=== PATIENT | male | born 1980 | race Caucasian/White ===

== ENCOUNTER 2016-07-15 07:56 | Inpatient (IN) | payer OTHER ==
[2016-07-15] MEDS ORDERED: HYDROmorphone 1 MG/ML 1 ML SYRINGE IVP STA ×2 (08:28→09:10)
[2016-07-15] MEDS ORDERED: ONDANSETRON 4 MG/2 ML VIAL IVP STA (08:28)
[2016-07-15] MEDS ORDERED: SODIUM CHLORIDE 0.9% 1,000 ML IV STA (08:28)
[2016-07-15 08:37] LABS: Basophils # (A) 0.1 k/uL (0-0.2); Basophils % (A) 0 %; CH 29.9; Eosinophils # (A) 0.2 k/uL (0-0.7); Eosinophils % (A) 1 %; HCT 46.7 % (39.0-53.0); HDW 2.89; HGB 16.2 gm/dL (13.0-17.5); Luc # (Auto) 0.15; Luc % (Auto) 1; Lymphocytes # (A) 1.8 k/uL (1.0-4.8); Lymphocytes % (A) 9 %; MCH 29.7 pg (25.0-35.0); MCHC 34.6 g/dL (31.0-37.0); MCV 85.8 fL (80.0-100.0); Mean Platelet Volume 7.7; Monocytes # (A) 0.7 k/uL (0-1.0); Monocytes % (A) 4 %; Neutrophils % (A) 85 %; RBC 5.45 m/uL (4.30-5.90); RDW 12.9 % (11.5-15.5); WBC (Perox) 20.11
[2016-07-15 08:47] LABS: ALT 69 U/L (21-72); AST 34 U/L (17-59); Alkaline Phosphatase 135 U/L (38-126); Amylase 47 U/L (30-110); Anion Gap 10 mmol/L; Blood Urea Nitrogen 19 mg/dL (9-20); Calcium 9.9 mg/dL (8.4-10.2); Carbon Dioxide 25 mmol/L (22-30); Chloride 108 mmol/L (98-107); Glucose 194 mg/dL (74-99); Non-African American GFR(MDRD) >60 (>60 ml/min/1.73 sqM); Potassium 4.3 mmol/L (3.5-5.1); Sodium 143 mmol/L (137-145); Total Bilirubin 0.9 mg/dL (0.2-1.3); Total Protein 7.7 g/dL (6.3-8.2)
--- NOTE | 2016-07-15 08:47 | ED ---
General Adult HPI - General Chief complaint: Abdominal Pain Stated complaint: ABDOMINAL PAIN Time Seen by Provider: 07/15/16 08:12 Source: patient, RN notes reviewed Mode of arrival: ambulatory Limitations: no limitations - History of Present Illness Initial comments: Patient is a 36-year-old male who presents emergency room today with a chief complaint of epigastric and left upper quadrant pain that started this morning. Patient states never had pain similar to this in the past. Patient does admit to symptoms of nausea vomiting diarrhea. Denies any other sick contacts at home. Denies any other complaints or associated symptoms at this time. Patient denies any recent fever, chills, shortness of breath, chest pain, back pain, numbness or tingling, dysuria or hematuria, constipation, headaches or visual changes, or any other complaints. - Related Data Home Medications Medication Instructions Recorded Confirmed Baclofen [Lioresal] 20 mg PO TID 12/07/14 12/07/14 Doxycycline [Vibramycin] 50 mg PO Q12HR 12/07/14 12/07/14 HYDROcodone/APAP 10-325MG [[place] 1 each PO Q6H PRN 12/07/14 12/07/14 10] PARoxetine [Paxil] 10 mg PO DAILY 12/07/14 12/07/14 metFORMIN HCL 1,000 mg PO BID 12/07/14 12/07/14 Previous Rx's Medication Instructions Recorded Omeprazole [PriLOSEC] 20 mg PO AC-BRKFST #30 cap 12/07/14 Ondansetron HCl [Zofran] 4 mg PO Q4-6H PRN #15 tab 12/07/14 Allergies Allergy/AdvReac Type Severity Reaction Status Date / Time No Known Allergies Allergy Verified 07/15/16 11:52 Review of Systems ROS Statement: Those systems with pertinent positive or pertinent negative responses have been documented in the HPI. ROS Other: All systems not noted in ROS Statement are negative. Past Medical History Past Medical History: Diabetes Mellitus Additional Past Medical History / Comment(s): Traumatic brain injury, post traumatic stress disorder History of Any Multi-Drug Resistant Organisms: None Reported Past Surgical History: Tonsillectomy Past Psychological History: PTSD Smoking Status: Current every day smoker Past Alcohol Use History: None Reported Past Drug Use History: None Reported General Exam - General Exam Comments Initial Comments: General: The patient is awake and alert, in no distress, and does not appear acutely ill. Eye: Pupils are equal, round and reactive to light, extra-ocular movements are intact. No nystagmus. There is normal conjunctiva bilaterally. No signs of icterus. Ears, nose, mouth and throat: There are moist mucous membranes and no oral lesions. Neck: The neck is supple, there is no tenderness or JVD. Cardiovascular: There is a regular rate and rhythm. No murmur, rub or gallop is appreciated. Respiratory: Lungs are clear to auscultation, respirations are non-labored, breath sounds are equal. No wheezes, stridor, rales, or rhonchi. Gastrointestinal: Normal exam. Normal bowel sounds. Abdomen soft on palpation. Patient does have tenderness in the epigastric and left upper quadrants. No rebound tenderness. No guarding. No CVA tenderness. Musculoskeletal: Normal ROM, no tenderness. Strength 5/5. Sensation intact. Pulses equal bilaterally 2+. Neurological: A&O x 3. CN II-XII intact, There are no obvious motor or sensory deficits. Coordination appears grossly intact. Speech is normal. Skin: Skin is warm and dry and no rashes or lesions are noted. Psychiatric: Cooperative, appropriate mood & affect, normal judgment. Limitations: no limitations Course Vital Signs 07/15/16 08:01 Temperature 97.8 F Pulse Rate 85 Respiratory 20 Rate Blood Pressure 180/99 O2 Sat by Pulse 99 Oximetry Medical Decision Making - Medical Decision Making Patient is a 20,[address] was obtained which does show possible pyelonephritis. His urinalysis shows no sign of infection but does have some red cells. Small calcification areas seen in the lower pelvis on CT. Patient started on Rocephin here in the emergency room cover for infection. Continues to have pain with symptoms of nausea vomiting here the emergency room will be admitted to the hospital for further evaluation and pain control. - Lab Data Result diagrams: 07/15/16 08:17 07/15/16 08:17 Lab Results 07/15/16 07/15/16 07/15/16 Range/Units 08:14 08:17 08:17 WBC 20.0 H (3.8-10.6) k/uL RBC 5.45 (4.30-5.90) m/uL Hgb 16.2 (13.0-17.5) gm/dL Hct 46.7 (39.0-53.0) % MCV 85.8 (80.0-100.0) fL MCH 29.7 (25.0-35.0) pg MCHC 34.6 (31.0-37.0) g/dL RDW 12.9 (11.5-15.5) % Plt Count 366 (150-450) k/uL Neutrophils % 85 % Lymphocytes % 9 % Monocytes % 4 % Eosinophils % 1 % Basophils % 0 % Neutrophils # 17.0 H (1.3-7.7) k/uL Lymphocytes # 1.8 (1.0-4.8) k/uL Monocytes # 0.7 (0-1.0) k/uL Eosinophils # 0.2 (0-0.7) k/uL Basophils # 0.1 (0-0.2) k/uL Sodium 143 (137-145) mmol/L Potassium 4.3 (3.5-5.1) mmol/L Chloride 108 H (98-107) mmol/L Carbon Dioxide 25 (22-30) mmol/L Anion Gap 10 mmol/L BUN 19 (9-20) mg/dL Creatinine 0.83 (0.66-1.25) mg/dL Est GFR (MDRD) Af Amer >60 (>60 ml/min/1.73 sqM) Est GFR (MDRD) Non-Af >60 (>60 ml/min/1.73 sqM) Glucose 194 H (74-99) mg/dL Calcium 9.9 (8.4-10.2) mg/dL Total Bilirubin 0.9 (0.2-1.3) mg/dL AST 34 (17-59) U/L ALT 69 (21-72) U/L Alkaline Phosphatase 135 H (38-126) U/L Total Protein 7.7 (6.3-8.2) g/dL Albumin 4.8 (3.5-5.0) g/dL Amylase 47 (30-110) U/L Lipase 91 (23-300) U/L Urine Color Urine Appearance (Clear) Urine pH (5.0-8.0) Ur Specific [place] (1.001-1.035) Urine Protein (Negative) Urine Glucose (UA) (Negative) Urine Ketones (Negative) Urine Blood (Negative) Urine Nitrite (Negative) Urine Bilirubin (Negative) Urine Urobilinogen (<2.0) mg/dL Ur Leukocyte Esterase (Negative) Urine RBC (0-5) /hpf Urine WBC (0-5) /hpf Ur Squamous Epith Cells (0-4) /hpf Urine Mucus (None) /hpf Acetone, Qual Negative (Negative) 07/15/16 Range/Units 10:54 WBC (3.8-10.6) k/uL RBC (4.30-5.90) m/uL Hgb (13.0-17.5) gm/dL Hct (39.0-53.0) % MCV (80.0-100.0) fL MCH (25.0-35.0) pg MCHC (31.0-37.0) g/dL RDW (11.5-15.5) % Plt Count (150-450) k/uL Neutrophils % % Lymphocytes % % Monocytes % % Eosinophils % % Basophils % % Neutrophils # (1.3-7.7) k/uL Lymphocytes # (1.0-4.8) k/uL Monocytes # (0-1.0) k/uL Eosinophils # (0-0.7) k/uL Basophils # (0-0.2) k/uL Sodium (137-145) mmol/L Potassium (3.5-5.1) mmol/L Chloride (98-107) mmol/L Carbon Dioxide (22-30) mmol/L Anion Gap mmol/L BUN (9-20) mg/dL Creatinine (0.66-1.25) mg/dL Est GFR (MDRD) Af Amer (>60 ml/min/1.73 sqM) Est GFR (MDRD) Non-Af (>60 ml/min/1.73 sqM) Glucose (74-99) mg/dL Calcium (8.4-10.2) mg/dL Total Bilirubin (0.2-1.3) mg/dL AST (17-59) U/L ALT (21-72) U/L Alkaline Phosphatase (38-126) U/L Total Protein (6.3-8.2) g/dL Albumin (3.5-5.0) g/dL Amylase (30-110) U/L Lipase (23-300) U/L Urine Color Yellow Urine Appearance Clear (Clear) Urine pH 5.0 (5.0-8.0) Ur Specific [place] 1.021 (1.001-1.035) Urine Protein Trace H (Negative) Urine Glucose (UA) Negative (Negative) Urine Ketones 1+ H (Negative) Urine Blood Moderate H (Negative) Urine Nitrite Negative (Negative) Urine Bilirubin Negative (Negative) Urine Urobilinogen <2.0 (<2.0) mg/dL Ur Leukocyte Esterase Negative (Negative) Urine RBC 23 H (0-5) /hpf Urine WBC <1 (0-5) /hpf Ur Squamous Epith Cells <1 (0-4) /hpf Urine Mucus Occasional H (None) /hpf Acetone, Qual (Negative) Disposition Clinical Impression: Intractable nausea and vomiting, Intractable pain Disposition: ADMITTED IP TO THIS [facility] Condition: Stable Referrals: Bipin Babb DO [Primary Care Provider] - 1-2 days Time of Disposition: 11:27
--- NOTE | 2016-07-15 09:17 | XR ---
Abdomen HISTORY: Pain, nausea and vomiting Frontal view of the abdomen on 2 images There is no bowel obstruction or pneumoperitoneum. No pathologic calcification. Lung bases are clear. IMPRESSION: Nonobstructive bowel gas pattern
--- NOTE | 2016-07-15 10:16 | CT ---
EXAMINATION TYPE: CT abdomen pelvis wo con DATE OF EXAM: 07/15/2016 COMPARISON: Abdomen same date HISTORY: Abdominal pain CT DLP: 1963 mGycm Automated exposure control for dose reduction was used. TECHNIQUE: Helical acquisition of images from the lung bases through the pelvis. FINDINGS: LUNG BASES: Minimal dependent atelectatic changes are present. No pleural or pericardial effusion. ABDOMEN: Lack of intravenous contrast could compromise sensitivity of the exam. There is no pneumoper itoneum, retroperitoneal adenopathy, or ascites. AORTA: No significant abnormality is appreciated. LIVER/GB: Liver shows low attenuation likely due to fatty infiltration. Focal fatty sparing adjacent to the gallbladder, gallbladder is unremarkable. Liver is enlarged. PANCREAS: No significant abnormality is seen. SPLEEN: No significant abnormality is seen. ADRENALS: No significant abnormality is seen. KIDNEYS: Left kidney shows some perinephric stranding, mild prominence of the collecting system is no myrtle. No ureteral calculus, no renal calculus bilaterally. REPRODUCTIVE ORGANS: No significant abnormality is seen. URINARY BLADDER: No significant abnormality is seen. BOWEL: No significant abnormality is seen. The appendix is normal. PELVIC ADENOPATHY: None visualized. RETROPERITONEAL ADENOPATHY: No Retroperitoneal Adenopathy visible. OSSEOUS STRUCTURES: Degenerative disc changes are present especially at the lumbosacral junction. IMPRESSION: FINDINGS WITHIN THE LEFT KIDNEY COULD REPRESENT PYELONEPHRITIS OR POSSIBLY RECENTLY PASSED URETERAL C ALCULUS. CORRELATE AND FOLLOW-UP INDICATED. FATTY INFILTRATION OF THE LIVER. NONCONTRAST EXAM.
[2016-07-15 11:08] LABS: Appearance,Urine Clear (Clear); Bilirubin,Urine Negative (Negative); Glucose,Urine (UA) Negative (Negative); Ketones,Urine 1+ (Negative); Leukocyte Esterase,Urine Negative (Negative); Mucus,Urine Occasional /hpf; Nitrite,Urine Negative (Negative); Particle Count 3359; Protein,Urine Trace (Negative); RBC,Urine 23 /hpf (0-5); Specific Gravity,Urine 1.021 (1.001-1.035); Squamous Epithelial Cell,Urine <1 /hpf (0-4); UA Billing (MACRO vs. MICRO) MICRO; Urobilinogen,Urine <2.0 mg/dL (<2.0); WBC,Urine <1 /hpf (0-5)
[2016-07-15] MEDS ORDERED: KETOROLAC 30 MG/ML 1 ML VIAL IVP STA (11:10)
[2016-07-15] MEDS ORDERED: cefTRIAXone 2,000 MG in SODIUM CHLORIDE 0.9% 100 ML IVPB STA (11:19)
[2016-07-15] MEDS ORDERED: SODIUM CHLORIDE 0.9% 1,000 ML IV ONE (11:56)
[2016-07-15] MEDS ORDERED: KETOROLAC 30 MG/ML 1 ML VIAL IVP PRN (11:56)
[2016-07-15] MEDS ORDERED: ACETAMINOPHEN TAB 325 MG TAB PO PRN (11:56)
[2016-07-15] MEDS ORDERED: ONDANSETRON 4 MG/2 ML VIAL IVP PRN (11:56)
[2016-07-15] MEDS ORDERED: HYDROmorphone 1 MG/ML 1 ML SYRINGE IV PRN (11:56)
[2016-07-15] MEDS ORDERED: NALOXONE 0.4 MG/ML 1 ML VIAL IV PRN (11:56)
[2016-07-15 12:32] VITALS: BP 137/77; PULSE 72; RESP 16; TEMP 97.4
--- NOTE | 2016-07-15 19:43 | HP ---
DATE OF ADMISSION: 07/15/2016 This dictation is both H&P and discharge summary. HISTORY AND PHYSICAL EXAMINATION/DISCHARGE SUMMARY: Patient is a 36-year-old gentleman came in with complaints of severe crampy and sharp abdominal pain in the left lower abdominal quadrant, radiating to the back and into the groin area. Patient denied any fever, chills. Patient's pain was 10/10, which completely resolved at this point of time. Patient says Ketorolac helped him. Patient also had leukocytosis. Patient denied any fever, chills. Patient symptoms started last night and a CT of the abdomen and pelvis was done which did show some inflammatory changes consistent with passed stone. Although patient does not have any clinical signs or symptoms of infection or UTI. Patient denied any dysuria. The patient's urine showed trace protein, 1+ ketones. Moderate blood and no WBC, 23 RBCs and occasional mucus consistent with passed stone and patient does have leukocytosis, which is reactive secondary to severe pain from cholelithiasis. Patient was also having nausea, vomiting. REVIEW OF SYSTEMS: CONSTITUTIONAL: No fever, no malaise, no fatigue. HEENT: No recent visual problems or hearing problems. Denied any sore throat. CARDIOVASCULAR: No chest pain, orthopnea, PND, no palpitations, no syncope. PULMONARY: No shortness of breath, no cough, no hemoptysis. GASTROINTESTINAL: as described in HPI. NEUROLOGICAL: No headaches, no weakness, no numbness. HEMATOLOGICAL: Denies any bleeding or petechiae. GENITOURINARY: Denies any burning micturition, frequency, or urgency. MUSCULOSKELETAL/RHEUMATOLOGICAL: Denies any joint pain, swelling, or any muscle pain. ENDOCRINE: Denies any polyuria or polydipsia. The rest of the 14 point review of systems is negative. Home medications include: 1. Baclofen. 2. Doxycycline. 3. Hydrocodone. 4. Acetaminophen. 5. Paroxetine. 6. Metformin. PAST MEDICAL HISTORY: Significant for diabetes mellitus. Obesity. PTSD. Patient smokes on a regular basis. Denied any alcohol abuse or any drug abuse. FAMILY HISTORY: Unavailable at this point of time. PHYSICAL EXAMINATION: VITAL SIGNS: Temperature 97.4, pulse 72, respiratory rate of 16, blood pressure is 107/77. Saturating at 98% on room air. GENERAL: The patient is alert and oriented x3, not in any acute distress. Well developed, well nourished. HEENT: Pupils are round and equally reacting to light. EOMI. No scleral icterus. No conjunctival pallor. Normocephalic, atraumatic. No pharyngeal erythema. No thyromegaly. CARDIOVASCULAR: S1 and S2 present. No murmurs, rubs, or gallops. PULMONARY: Chest is clear to auscultation, no wheezing or crackles. ABDOMEN: Soft, nontender, nondistended, normoactive bowel sounds. No palpable organomegaly. MUSCULOSKELETAL: No joint swelling or deformity. EXTREMITIES: No cyanosis, clubbing, or pedal edema. NEUROLOGICAL: Gross neurological examination did not reveal any focal deficits. SKIN: No rashes. LABORATORY DATA: CBC and are abnormal for elevated WBC count of 20,000. UA as mentioned above. ASSESSMENT AND PLAN: 1. Cholelithiasis with passed stone. I do not feel patient has any urinary tract infection at this point of time or pyelonephritis at this point of time. Patient will not require antibiotics and patient already has ibuprofen at home which he will continue and patient will follow with Dr. Babb as an outpatient. Patient is following up with urology in [facility] in [place] for vasectomy and I asked the patient to follow-up with the same urologist for his kidney stones. 2. Diabetes mellitus, patient can continue his home medications. 3. Leukocytosis without any infection reactive in nature. Patient's pain completely resolved. Patient is being discharged today. Patient will follow with Dr. Bipin Babb in 3 to 7 days, his urologist as scheduled. Activity as tolerated. Diabetic 1800 calorie ADA diet.
== END 2016-07-15 15:02 | disposition home or self-care (01) | DRG 694 ==
LOC: EC 07:56 → 4MS4W 11:56
PROVIDERS: ADMIT Hospitalist; ATTEND Hospitalist
DX: N20.0 Calculus of kidney (principal); Z68.41 Body mass index [BMI] 40.0-44.9, adult; E11.9 Type 2 diabetes mellitus without complications; D72.829 Elevated white blood cell count, unspecified; F17.200 Nicotine dependence, unspecified, uncomplicated; F43.10 Post-traumatic stress disorder, unspecified; R11.2 Nausea with vomiting, unspecified; E66.9 Obesity, unspecified; Z79.899 Other long term (current) drug therapy; Z79.84 Long term (current) use of oral hypoglycemic drugs; Z87.820 Personal history of traumatic brain injury; Z79.2 Long term (current) use of antibiotics; Z79.891 Long term (current) use of opiate analgesic
CPT/HCPCS: 36415; 74000; 74176; 80053; 81001; 82009; 82150; 83690; 85025; 96361; 96365; 96374; 96375; 96376; 99284; 99285

== ENCOUNTER 2016-07-15 17:18 | Emergency (ER) | payer OTHER ==
[2016-07-15] MEDS ORDERED: SODIUM CHLORIDE 0.9% 1,000 ML IV STA (18:04)
[2016-07-15] MEDS ORDERED: KETOROLAC 30 MG/ML 1 ML VIAL IVP STA (18:04)
--- NOTE | 2016-07-15 18:12 | ED ---
General Adult HPI - General Chief complaint: Abdominal Pain Stated complaint: back and abdominal pain Time Seen by Provider: 07/15/16 17:57 Source: patient, RN notes reviewed Mode of arrival: ambulatory Limitations: no limitations - History of Present Illness Initial comments: Patient 36-year-old male who presents emergency room today with a chief complaint of left-sided flank pain. He does admit that this started early this morning approximately 3 and was seen here in the emergency room earlier today and admitted to the hospital. He states his pain had improved. The floor. He stated that he had passed a kidney stone and was cleared to be discharged home. States that when he got home the pain increased and returned. He states he is expressing his left flank once again. Patient does admit to symptoms of nausea and vomiting. Admits pain sharp in nature located to the left flank radiating around to the front. Denies any other complaints or symptoms. Patient denies any recent fever, chills, shortness of breath, chest pain, numbness or tingling, dysuria or hematuria, constipation or diarrhea, headaches or visual changes, or any other complaints. - Related Data Home Medications Medication Instructions Recorded Confirmed Dextroamphetamine/Amphetamine 30 mg PO BID 07/15/16 07/15/16 [Adderall] Glipizide Unknown Strength 1 tab PO BID 07/15/16 07/15/16 Ibuprofen [Motrin] 800 mg PO BID 07/15/16 07/15/16 Previous Rx's Medication Instructions Recorded Ketorolac [Toradol] 10 mg PO Q6HR #12 tab 07/15/16 Allergies Allergy/AdvReac Type Severity Reaction Status Date / Time No Known Allergies Allergy Verified 07/15/16 11:52 Review of Systems ROS Statement: Those systems with pertinent positive or pertinent negative responses have been documented in the HPI. ROS Other: All systems not noted in ROS Statement are negative. Past Medical History Past Medical History: Diabetes Mellitus Additional Past Medical History / Comment(s): Traumatic brain injury, post traumatic stress disorder History of Any Multi-Drug Resistant Organisms: None Reported Past Surgical History: Tonsillectomy Past Psychological History: PTSD Smoking Status: Current every day smoker Past Alcohol Use History: None Reported Past Drug Use History: None Reported General Exam - General Exam Comments Initial Comments: General: The patient is awake and alert, in mild distress. Eye: Pupils are equal, round and reactive to light, extra-ocular movements are intact. No nystagmus. There is normal conjunctiva bilaterally. No signs of icterus. Ears, nose, mouth and throat: There are moist mucous membranes and no oral lesions. Neck: The neck is supple, there is no tenderness or JVD. Cardiovascular: There is a regular rate and rhythm. No murmur, rub or gallop is appreciated. Respiratory: Lungs are clear to auscultation, respirations are non-labored, breath sounds are equal. No wheezes, stridor, rales, or rhonchi. Gastrointestinal: Normal appearance them. Bowel sounds. Abdomen soft nontender. Patient does have tenderness to the left flank. No rebound tenderness. No Guarding. Musculoskeletal: Normal ROM, no tenderness. Strength 5/5. Sensation intact. Pulses equal bilaterally 2+. Neurological: A&O x 3. CN II-XII intact, There are no obvious motor or sensory deficits. Coordination appears grossly intact. Speech is normal. Skin: Skin is warm and dry and no rashes or lesions are noted. Psychiatric: Cooperative, appropriate mood & affect, normal judgment. Limitations: no limitations Course Vital Signs 07/15/16 17:44 Temperature 97.8 F Pulse Rate 85 Respiratory 20 Rate Blood Pressure 180/99 O2 Sat by Pulse 99 Oximetry Medical Decision Making - Medical Decision Making Case discussed in detail with attending physician Dr. Sanchez. Patient's labs been reviewed shows a 17,000 white count. Patient's urinalysis shows 27 red cells. Patient's previous CT of the abdomen and pelvis reviewed. Previous labs reviewed. At this time patient resting comfortable after Toradol given here in the emergency room. Patient will be discharged home with a short prescription for USE over the next 2 days. He does have Gate at home. He is advised follow-up urologist over the next 2 days. Advised return if any symptoms increase or worsen or for any other concerns. - Lab Data Result diagrams: 07/15/16 18:12 07/15/16 18:12 Lab Results 07/15/16 07/15/16 07/15/16 Range/Units 18:12 18:12 18:12 WBC 17.8 H (3.8-10.6) k/uL RBC 5.21 (4.30-5.90) m/uL Hgb 15.2 (13.0-17.5) gm/dL Hct 45.5 (39.0-53.0) % MCV 87.4 (80.0-100.0) fL MCH 29.3 (25.0-35.0) pg MCHC 33.5 (31.0-37.0) g/dL RDW 13.2 (11.5-15.5) % Plt Count 302 (150-450) k/uL Neutrophils % 82 % Lymphocytes % 9 % Monocytes % 7 % Eosinophils % 1 % Basophils % 0 % Neutrophils # 14.6 H (1.3-7.7) k/uL Lymphocytes # 1.6 (1.0-4.8) k/uL Monocytes # 1.2 H (0-1.0) k/uL Eosinophils # 0.2 (0-0.7) k/uL Basophils # 0.0 (0-0.2) k/uL Sodium 144 (137-145) mmol/L Potassium 4.0 (3.5-5.1) mmol/L Chloride 107 (98-107) mmol/L Carbon Dioxide 25 (22-30) mmol/L Anion Gap 12 mmol/L BUN 19 (9-20) mg/dL Creatinine 1.10 (0.66-1.25) mg/dL Est GFR (MDRD) Af Amer >60 (>60 ml/min/1.73 sqM) Est GFR (MDRD) Non-Af >60 (>60 ml/min/1.73 sqM) Glucose 173 H (74-99) mg/dL Calcium 9.6 (8.4-10.2) mg/dL Total Bilirubin 0.5 (0.2-1.3) mg/dL AST 31 (17-59) U/L ALT 60 (21-72) U/L Alkaline Phosphatase 107 (38-126) U/L Total Protein 7.0 (6.3-8.2) g/dL Albumin 4.4 (3.5-5.0) g/dL Lipase 129 (23-300) U/L Urine Color Yellow Urine Appearance Cloudy (Clear) Urine pH 5.5 (5.0-8.0) Ur Specific [place] 1.024 (1.001-1.035) Urine Protein Trace H (Negative) Urine Glucose (UA) Trace H (Negative) Urine Ketones Trace H (Negative) Urine Blood Moderate H (Negative) Urine Nitrite Negative (Negative) Urine Bilirubin Negative (Negative) Urine Urobilinogen <2.0 (<2.0) mg/dL Ur Leukocyte Esterase Negative (Negative) Urine RBC 27 H (0-5) /hpf Urine WBC 1 (0-5) /hpf Ur Squamous Epith Cells <1 (0-4) /hpf Amorphous Sediment Rare H (None) /hpf Urine Mucus Few H (None) /hpf Disposition Clinical Impression: Kidney stone on left side Disposition: HOME SELF-CARE Condition: Good Instructions: Kidney Stones (ED) Additional Instructions: Please use medication as discussed. Please follow-up with urologist/family doctor in the next 2 days of symptoms have not improved. Please return to emergency room if the symptoms increase or worsen or for any other concerns. Prescriptions: Ketorolac [Toradol] 10 mg PO Q6HR #12 tab Referrals: Bipin Babb DO [Primary Care Provider] - 1-2 days Cory Kaye MD [STAFF PHYSICIAN] - 1-2 days Time of Disposition: 18:56
[2016-07-15 18:25] LABS: Basophils % (A) 0 %; CH 29.5; CHCM 33.9; Eosinophils # (A) 0.2 k/uL (0-0.7); Eosinophils % (A) 1 %; HCT 45.5 % (39.0-53.0); HDW 2.71; HGB 15.2 gm/dL (13.0-17.5); Luc # (Auto) 0.25; Luc % (Auto) 1; Lymphocytes # (A) 1.6 k/uL (1.0-4.8); Lymphocytes % (A) 9 %; MCH 29.3 pg (25.0-35.0); MCHC 33.5 g/dL (31.0-37.0); MCV 87.4 fL (80.0-100.0); Mean Platelet Volume 6.9; Monocytes # (A) 1.2 k/uL (0-1.0); Monocytes % (A) 7 %; Neutrophils # (A) 14.6 k/uL (1.3-7.7); Neutrophils % (A) 82 %; RBC 5.21 m/uL (4.30-5.90); RDW 13.2 % (11.5-15.5); WBC 17.8 k/uL (3.8-10.6); WBC (Perox) 17.46
[2016-07-15 18:28] LABS: Amorphous Sediment,Urine Rare /hpf; Appearance,Urine Cloudy (Clear); Bilirubin,Urine Negative (Negative); Glucose,Urine (UA) Trace (Negative); Ketones,Urine Trace (Negative); Leukocyte Esterase,Urine Negative (Negative); Mucus,Urine Few /hpf; Nitrite,Urine Negative (Negative); PH, Urine 5.5 (5.0-8.0); Particle Count 5387; Protein,Urine Trace (Negative); RBC,Urine 27 /hpf (0-5); Specific Gravity,Urine 1.024 (1.001-1.035); Squamous Epithelial Cell,Urine <1 /hpf (0-4); UA Billing (MACRO vs. MICRO) MICRO; Urobilinogen,Urine <2.0 mg/dL (<2.0); WBC,Urine 1 /hpf (0-5)
[2016-07-15 18:40] LABS: ALT 60 U/L (21-72); AST 31 U/L (17-59); Alkaline Phosphatase 107 U/L (38-126); Anion Gap 12 mmol/L; Blood Urea Nitrogen 19 mg/dL (9-20); Calcium 9.6 mg/dL (8.4-10.2); Carbon Dioxide 25 mmol/L (22-30); Chloride 107 mmol/L (98-107); Glucose 173 mg/dL (74-99); Non-African American GFR(MDRD) >60 (>60 ml/min/1.73 sqM); Sodium 144 mmol/L (137-145); Total Bilirubin 0.5 mg/dL (0.2-1.3)
[2016-07-15 19:09] VITALS: BP 143/82; PULSE 87; RESP 18; TEMP 98.4
== END 2016-07-15 19:09 | disposition home or self-care (01) ==
LOC: EC 17:18
DX: N20.0 Calculus of kidney (principal); E11.9 Type 2 diabetes mellitus without complications; F43.10 Post-traumatic stress disorder, unspecified; F17.200 Nicotine dependence, unspecified, uncomplicated; Z79.1 Long term (current) use of non-steroidal anti-inflammatories (NSAID); Z79.84 Long term (current) use of oral hypoglycemic drugs; Z79.899 Other long term (current) drug therapy
CPT/HCPCS: 36415; 80053; 83690; 85025; 81001; 99284; 96374; 96361; J1885

== ENCOUNTER 2018-08-29 14:55 | Emergency (ER) | payer OTHER ==
[2018-08-29 15:00] VITALS: BP 142/100; PULSE 122; TEMP 98.1
[2018-08-29] MEDS ORDERED: PROPARACAINE 0.5% OPHTH DROPS 15 ML BTL RIGHT EYE STA (15:50)
[2018-08-29 16:16] VITALS: RESP 16
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
== END 2018-08-29 17:00 | disposition home or self-care (01) ==
LOC: EC 14:55
DX: H11.31 Conjunctival hemorrhage, right eye (principal); S05.01XA Injury of conjunctiva and corneal abrasion without foreign body, right eye, initial encounter; E11.9 Type 2 diabetes mellitus without complications; F17.200 Nicotine dependence, unspecified, uncomplicated; Z79.84 Long term (current) use of oral hypoglycemic drugs; Z79.899 Other long term (current) drug therapy; W22.8XXA Striking against or struck by other objects, initial encounter; Y92.69 Other specified industrial and construction area as the place of occurrence of the external cause; Y99.0 Civilian activity done for income or pay
CPT/HCPCS: 99283

== ENCOUNTER → 2019-04-06 | Outpatient (CLI) | payer OTHER ==
--- NOTE | 2019-04-07 03:57 | MR ---
EXAMINATION TYPE: MR shoulder RT wo con DATE OF EXAM: 04/06/2019 COMPARISON: Outside radiographs 01/29/2019 HISTORY: 38-year-old male with right shoulder pain, limited ROM, history of injury TECHNIQUE: Multiplanar, multisequence imaging of the right shoulder is performed without contrast. FINDINGS: There is a split tear within the intracapsular portion of the long head biceps tendon. The extracapsu lar portion remains and probably situated along the bicipital groove. Heterogeneous signal within the subscapularis tendon with intrasubstance change and partial tear of t he superior most fibers. The majority of the supraspinatus tendon remains intact. Mild thickening of the subacromial/subdeltoid bursae with trace fluid within the subacromial bursa. Heterogeneous signal within the supraspinatus and infraspinatus tendons. Mild bursal sided fraying of the supraspinatus tendon. There is a 7 x 5 mm intrasubstance tear at the footprint of the infraspina tus tendon with possible bursal sided communication. Abnormal signal within the substance of the superior labrum extending back to the posterior aspect of the superior labrum. There may be a tear that extends forward to the mid aspect of the anterior labr um. No para labral cyst. Some thickening of the coracohumeral ligament. Mild fatty atrophy of the teres minor. No additional rotator cuff muscle atrophy. Moderate degenerative joint space narrowing and marginal spurring and capsular vertebrae at the acrom ioclavicular joint with periarticular and subchondral edema and joint effusion. No significant mass e ffect onto the underlying cuff. No Hill-Sachs deformity or os acromiale. Patchy red marrow is present and can be seen in setting of a nemia, obesity, smoking, and chronic disease. IMPRESSION: 1. Diffuse rotator cuff tendinosis. Partial tearing of the superior subscapularis tendon. The majorit y of the subscapularis tendon remains intact. 2. Additional bursal sided fraying of the supraspinatus tendon and a 7 x 5 mm intrasubstance tear at the footprint of the infraspinatus tendon with possible small area of bursal sided communication. No full-thickness rotator cuff tear. 3. Mild fatty atrophy of the teres minor muscle can be seen in the setting of quadrilateral space syn drome. Clinically correlate. 4. SLAP tear extending to the posterior aspect of the superior labrum. Tear may extend to the mid asp ect of the anterior labrum. 5. Split tear of the intracapsular long head biceps tendon. 6. Thickening of the coracohumeral ligament suggests biceps debbie sprain. 7. Moderate AC joint OA with subchondral and periarticular edema could represent acute exacerbation o f OA or a mild AC joint sprain. The coracoclavicular ligaments are intact.
--- NOTE | 2019-04-07 04:06 | MR ---
EXAMINATION TYPE: MR shoulder LT wo con DATE OF EXAM: 04/06/2019 COMPARISON: Outside radiograph 01/29/2019 HISTORY: 38-year-old male with left shoulder pain, limited ROM, hx of injury; outside xrays on pacs TECHNIQUE: Multiplanar, multisequence imaging of the left shoulder is performed without contrast. FINDINGS: There is some increased signal within the intracapsular portion of the long head biceps tendon. Some heterogeneous signal of the subscapularis tendon with a small intrasubstance tear of the middle to inferior third fibers. Majority of the tendon remains intact. Mild degenerative joint space narrowing and capsular hypertrophy at the acromioclavicular joint. No s ignificant impingement onto the underlying cuff. Some heterogeneous signal within both supraspinatus and infraspinatus tendons with intrasubstance tea r within the mid supraspinatus tendon fibers located just proximal to the footprint measuring 9 x 8 m m. The infraspinatus tendon is intact. No atrophy of the rotator cuff musculature. No discrete labral tear given nonobstructive radiographic technique. No paralabral cyst. Trace thickening of the subacromial/subdeltoid bursa and trace fluid within the subacromial bursa. There is some thickening of the coracohumeral ligament. The axillary recess is not particularly thick ened. Glenohumeral joint is intact. No joint effusion. No Hill-Sachs deformity or os acromiale. Patchy red marrow can be seen with anemia, obesity, smoking, chronic disease. IMPRESSION: 1. Subscapularis and supraspinous tendinosis. Some intrasubstance change within the subscapularis ten don. The majority of the tendon remains intact. There is also a 9 x 8 mm intrasubstance tear within t he mid supraspinatus tendon just proximal to the footprint. No high-grade partial or full-thickness r otator cuff tear. 2. Intracapsular long head biceps tendinosis. 3. Some thickening of the coracohumeral ligament could reflect a sprain of the biceps debbie. Clinica lly correlate as thickening here can also be seen in the setting of adhesive capsulitis. Note that th ere is no abnormal thickening of the axillary recess to further support this diagnosis. 4. Mild AC joint OA.
--- NOTE | 2019-04-07 04:16 | MR ---
EXAMINATION TYPE: MR lumbar spine wo con DATE OF EXAM: 04/06/2019 COMPARISON: None HISTORY: 38-year-old male with low back pain and bilateral lower extremity radiculopathy x 10 yrs, hi story of trauma TECHNIQUE: Multiplanar, multisequence images of the lumbar spine were acquired. FINDINGS: Vertebral body heights are preserved. Chronic superior endplate Schmorl's node at L5 anteriorly. Alignment is maintained. Facet arthropathy mid to lower lumbar spine There is a component of mild congenital spinal canal narrowing mid lumbar spine with AP canal dimensi on of 1.3 cm. Conus medullaris is normal. No suspicious bone marrow replacement. No prevertebral or paravertebral soft tissue abnormality. Degenerative disc disease L5-S1 and to a lesser extent L4-L5 desiccated and bulging discs. Moderate d isc height loss at L5-S1 and some associated Modic type II endplate change. At T12-L3 levels, no significant spinal canal or neuroforaminal stenosis. At L3-L4, there is some congenital canal narrowing and no significant spinal canal stenosis. No neuro foraminal stenosis At L4-L5, bulging disc with facet arthropathy. Disc material closely approaches both traversing L5 ne rve roots. Mild circumferential attenuation of the thecal sac. No significant canal or foraminal sten osis. At L5-S1, broad-based posterior disc protrusion greater towards the left. Again, disc material approa ches and may abut the traversing S1 nerve roots on both sides. Along with facet arthropathy, there is moderate left neural foraminal stenosis. Some circumferential attenuation of the thecal sac without significant spinal canal stenosis. IMPRESSION: 1. Degenerative disc disease L4-L5 and L5-S1. Moderate disc space loss at L5-S1 with some associated Modic type II endplate change. 2. Facet arthropathy mid to lower lumbar spine and a component of mild congenital spinal canal narrow ing mid lumbar spine. 3. Mild circumferential attenuation of the thecal sac at both L4-L5 and L5-S1 without significant spi nal canal stenosis. 4. Disc material closely approaches both traversing L5 nerve roots at the L4-L5 level. 5. Broad-based disc protrusion at L5-S1 approaches and may abut the traversing S1 nerve roots. Modera te left neuroforaminal stenosis at this level.
== END | disposition home or self-care (01) ==
LOC: RADMRIMAIN 11:06
DX: M48.061 Spinal stenosis, lumbar region without neurogenic claudication (principal); M51.27 Other intervertebral disc displacement, lumbosacral region; M51.36 Other intervertebral disc degeneration, lumbar region; M51.37 Other intervertebral disc degeneration, lumbosacral region; M46.96 Unspecified inflammatory spondylopathy, lumbar region; M19.011 Primary osteoarthritis, right shoulder; M19.012 Primary osteoarthritis, left shoulder; M75.102 Unspecified rotator cuff tear or rupture of left shoulder, not specified as traumatic; S46.811A Strain of other muscles, fascia and tendons at shoulder and upper arm level, right arm, initial encounter; S43.431A Superior glenoid labrum lesion of right shoulder, initial encounter; M75.82 Other shoulder lesions, left shoulder; M75.81 Other shoulder lesions, right shoulder; M89.8X1 Other specified disorders of bone, shoulder
CPT/HCPCS: 72148

== ENCOUNTER → 2019-08-31 | Outpatient (CLI) | payer OTHER ==
[2019-08-31 12:29] LABS: Basophils # (A) 0.1 k/uL (0-0.2); Basophils % (A) 1 %; Eosinophils # (A) 0.3 k/uL (0-0.7); Eosinophils % (A) 2 %; HGB 18.7 gm/dL (13.0-17.5); Lymphocytes # (A) 2.9 k/uL (1.0-4.8); Lymphocytes % (A) 21 %; MCH 29.1 pg (25.0-35.0); MCHC 32.8 g/dL (31.0-37.0); MCV 88.7 fL (80.0-100.0); Mean Platelet Volume 7.4; Monocytes # (A) 0.8 k/uL (0-1.0); Monocytes % (A) 6 %; Neutrophils # (A) 9.7 k/uL (1.3-7.7); Neutrophils % (A) 69 %; Platelet Count 343 k/uL (150-450); RBC 6.41 m/uL (4.30-5.90); WBC 14.1 k/uL (3.8-10.6)
[2019-08-31 12:34] LABS: HCT 56.9 % (39.0-53.0)
[2019-08-31 12:44] LABS: Potassium 5.5 mmol/L (3.5-5.1)
== END | disposition home or self-care (01) ==
LOC: LABPAT 11:01
PROVIDERS: ATTEND Orthopaedic Surgery
DX: Z01.818 Encounter for other preprocedural examination (principal); M75.41 Impingement syndrome of right shoulder
CPT/HCPCS: 36415; 80051; 85025

== ENCOUNTER 2019-09-03 05:55 | Day surgery (SDC) | payer OTHER ==
[2019-09-01 12:18] VITALS: BMI 36.6
--- NOTE | 2019-09-02 14:35 | HP ---
HISTORY AND PHYSICAL Yrn Mcmillan is a 39-year-old patient seen with progressive right shoulder pain, we discussed treatment options. He elected to proceed with arthroscopy. Consent regarding procedure was obtained. PAST MEDICAL HISTORY: [id number] diabetes. PAST SURGICAL HISTORY: None. ALLERGIES: None. DAILY MEDICATIONS: Glipizide, metformin, Jardiance. SOCIAL HISTORY: Smokes 1 pack of cigarettes daily. PHYSICAL EVALUATION OF THE RIGHT SHOULDER: Flexion is 140 degrees, abduction 100 degrees, external rotation is 30 degrees with some weakness. There is tenderness along the anterolateral acromion rotator cuff insertion site. Impingement is positive at 90 degrees. Drop-arm sign is positive. His distal neurovascular exam is intact. RADIOGRAPHS: Right shoulder revealed acromial joint osteoarthritis. An MRI of the right shoulder revealed a rotator cuff tendon tear, partial biceps tendon tear, acromioclavicular joint osteoarthritis and labral tear. IMPRESSION: 1. Right shoulder impingement with rotator cuff tear and labral tear. 2. Right shoulder partial biceps tendon tear. 3. Right shoulder acromioclavicular joint osteoarthritis. 4. [id number]-[id number] diabetes. PLAN: Right shoulder arthroscopy, subacromial decompression, arthroscopic rotator cuff repair, arthroscopic Karla procedure, biceps tenotomy and debridement. MMODL / IJN: [id number] /
[~2019-09-03 05:55] MED LIST: DEXAMETHASONE SOD PHOSPHATE 10 MG/ML 1 ML VIAL IV ONE; LACTATED RINGERS 1,000 ML IV SCH; MIDAZOLAM 2 MG/2 ML VIAL IV PRN; ONDANSETRON 4 MG/2 ML VIAL IVP ONE
[2019-09-03] MEDS ORDERED: ONDANSETRON 4 MG/2 ML VIAL ONE (06:21)
[2019-09-03] MEDS ORDERED: LIDOCAINE 1% (10MG/ML) FOR IV START INTRADERMA ONE (06:33)
[2019-09-03 06:41] LABS: Glucose,Whole Blood 146 mg/dL (75-99)
[2019-09-03] MEDS ORDERED: fentaNYL (PF) 50 MCG/ML 2 ML AMP IV ONE (07:07)
[2019-09-03] MEDS ORDERED: ROCURONIUM BROMIDE 10 MG/ML 5 ML VIAL IV ONE (07:25)
[2019-09-03] MEDS ORDERED: GLYCOPYRROLATE 0.2 MG/ML 2 ML VIAL ONE (07:25)
[2019-09-03] MEDS ORDERED: PROPOFOL 10 MG/ML 20 ML VIAL IV ONE (07:25)
[2019-09-03] MEDS ORDERED: ROPIVACAINE 5 MG/ML 30 ML VIAL ONE (07:25)
[2019-09-03] MEDS ORDERED: DEXAMETHASONE SOD PHOSPHATE 4 MG/ML 1 ML VIAL ONE (07:25)
[2019-09-03] MEDS ORDERED: NEOSTIGMINE 1 MG/ML 10 ML VIAL ONE (07:25)
[2019-09-03] MEDS ORDERED: fentaNYL (PF) 50 MCG/ML 2 ML AMP ONE (07:25)
[2019-09-03] MEDS ORDERED: MIDAZOLAM 2 MG/2 ML VIAL ONE (07:25)
[2019-09-03] MEDS ORDERED: SUCCINYLCHOLINE CHLORIDE 100 MG/5 ML SYR IV ONE (07:25)
[2019-09-03] MEDS ORDERED: LIDOCAINE 1% INJ 10MG/ML (20 ML MDV) ONE (07:25)
[2019-09-03 07:28] VITALS: RESP 16
[2019-09-03 09:08] VITALS: TEMP 97.1
[2019-09-03] MEDS: HYDROmorphone 0.5 MG/0.5 ML SYRINGE IVP PRN ×4 (09:15→10:00)
--- NOTE | 2019-09-03 09:16 | P.OP ---
Date of Procedure: 09/03/19 Preoperative Diagnosis: Right shoulder impingement Postoperative Diagnosis: 1. Right shoulder rotator cuff tear 2. Right shoulder impingement 3. Right shoulder acromioclavicular joint osteoarthritis 4. Right shoulder superficial anterior labral tear Procedure(s) Performed: 1. Right shoulder arthroscopic rotator cuff repair 2. Right shoulder arthroscopic subacromial decompression 3. Right shoulder arthroscopic Karla procedure 4. Right shoulder arthroscopic debridement labral tear Implants: 14.75 Arthrex a lock anchor Anesthesia: GETA, regional (Interscalene block) Surgeon: Oracio Tran Blocker [employer] #1: Ja Hamm Estimated Blood Loss (ml): 7 Pathology: none sent Condition: stable Disposition: PACU Indications for Procedure: 39-year-old patient seen with progressive right shoulder pain. After having treatment options discussed, he elected to proceed with arthroscopy. Operative Findings: see description of procedure Description of Procedure: Patient underwent an interscalene block by department of anesthesia. The patient was then taken to the operative suite. The patient underwent a general anesthetic by the department of anesthesia. The patient was placed into a lateral position and secured. There was appropriate padding of the bony prominence. Right shoulder was then prepped and draped in normal sterile orthopedic fashion. We placed the extremity in 10 pounds of longitudinal traction. A posterior incision was now made for a posterior working portal site. The trocar and cannula were inserted into the glenohumeral joint. Arthroscopy was initiated. Spinal needle was now inserted anteriorly, to ascertain the anterior working portal site. An incision was now made in that area, a trocar was inserted followed by a probe. There was no chondromalacia present. There was some superficial tearing of the anterior labrum. The biceps intact. Remainder labrum was intact. I could see rotator cuff tendon tear from glenohumeral joint. I debrided out the superficial labral tear. I probed the residual labrum and it was stable. Instruments now removed from glenohumeral joint. Utilizing the posterior working portal site, the trocar and cannula were inserted into the subacromial space. Arthroscopy initiated. I made an incision 2 fingerbreadths lateral to the acromion. I introduced my trocar followed by my ArthroCare ablator. I now began ablating thick subacromial bursal tissue, which exposed the undersurface of the anterior acromion. There was diminished subacromial space. There was a very prominent anterior acromion. A motorized bur was introduced and a subacromial decompression was performed. I also excised some osteophytes off the inferior aspect of the distal clavicle. The AC joint was visualized and noted to be fairly arthritic. The motorized bur was introduced in the anterior portal site and a Karla procedure was performed without difficulty, decompressing the AC joint nicely. I turned my attention to the rotator cuff. There was a 11.5 cm rotator cuff tear. I debrided the margins getting down to stable tendon tissue. I abraded the footprint with a motorized bur. I passed 3 everted mattress sutures through good bites of rotator cuff tendon. I punched the hole in the footprint area for insertion of an anchor. All 6 sutures were passed through the eyelet of a 4.75 Arthrex swivel lock anchor. I introduced the eyelet into our pre-punched hole and held in position while Caesar ESTEVES tensioned the sutures and deployed the anchor with good fixation noted. All residual suture limbs were now clipped. We had good compression of the tendon along the entire footprint. I injected 1 mL Renyte intra-articular. Instruments now removed from the portal sites. All portal sites were approximated with nylon suture. Sterile dressings were applied followed by a shoulder sling. Ja ESTEVES assisted in this complex case. The patient was awakened, transferred to a bed, and taken to recovery in stable condition.
[2019-09-03] MEDS ORDERED: diphenhydrAMINE 50 MG/ML 1 ML VIAL IVP ONE (09:20)
[2019-09-03 10:23] LABS: Glucose,Whole Blood 178 mg/dL (75-99)
[2019-09-03 10:46] VITALS: BP 147/81; PULSE 115
== END 2019-09-03 11:15 | disposition home or self-care (01) ==
LOC: OR 05:55
PROVIDERS: ATTEND Orthopaedic Surgery
DX: M75.101 Unspecified rotator cuff tear or rupture of right shoulder, not specified as traumatic (principal); M19.011 Primary osteoarthritis, right shoulder; S43.431A Superior glenoid labrum lesion of right shoulder, initial encounter; S46.211A Strain of muscle, fascia and tendon of other parts of biceps, right arm, initial encounter; M75.41 Impingement syndrome of right shoulder; G47.33 Obstructive sleep apnea (adult) (pediatric); E11.9 Type 2 diabetes mellitus without complications; Z79.84 Long term (current) use of oral hypoglycemic drugs; F17.210 Nicotine dependence, cigarettes, uncomplicated; Z90.89 Acquired absence of other organs; Z98.52 Vasectomy status; X58.XXXA Exposure to other specified factors, initial encounter
CPT/HCPCS: 29827; 29826; 29824; 64415; 76942; 84132; C1713; Q4212; J2250; J1200; J1100 ×2; J2710; J0690; J2405; J2001; J3010; J2795; J0330; J2704; J1170

== ENCOUNTER → 2021-10-27 | Outpatient (CLI) | payer OTHER ==
--- NOTE | 2021-10-27 14:34 | US ---
EXAMINATION TYPE: US mass soft tissue chest/back DATE OF EXAM: 10/27/2021 COMPARISON: NONE CLINICAL HISTORY: D17.9 LIPOMA. Right upper flank palpable lump 1.8 x 1.0 x 2.4cm isoechoic area seen at patient's palpable lump IMPRESSION: Findings compatible with lipoma.
== END | disposition home or self-care (01) ==
LOC: RADUSWWP 14:10
PROVIDERS: ATTEND Internal Medicine
DX: D17.9 Benign lipomatous neoplasm, unspecified (principal)

== ENCOUNTER 2023-11-15 17:04 | Emergency (ER) | payer OTHER ==
[2023-11-15 17:15] VITALS: TEMP 98.1
--- NOTE | 2023-11-15 17:24 | ED ---
Recheck HPI - General Chief Complaint: Recheck/Abnormal Lab/Rx Stated Complaint: Abnormal labs Time Seen by Provider: 11/15/23 17:20 Source: patient, RN notes reviewed Mode of arrival: ambulatory Limitations: no limitations - History of Present Illness Initial Comments: This is a 43-year-old male presents emergency department chief complaint of abnormal labs. Patient states that he had outpatient labs drawn yesterday by the [facility] where he was informed that his hemoglobin was dangerously high and reports emergency department. He states that over the past month he has been experiencing intermittent symptoms of dizziness, lightheadedness, nausea and he art palpitations. He states that his blood counts have been "off "over the past 4 to 5 years with elevated white blood cell count, red blood cell counts, and hemoglobin. Patient has followed with a kitchen aide in the past through [facility] where they have not found a determinate cause of the use abnormal blood test. States that he smokes a pack per day for the past aprox. 19 years - Related Data Home Medications Medication Instructions Recorded Confirmed Ibuprofen [Motrin] 800 mg PO BID 07/15/16 09/03/19 Alogliptin Benzoate [Alogliptin] 25 mg PO DAILY 09/01/19 09/03/19 Empagliflozin [Jardiance] 25 mg PO DAILY 09/01/19 09/03/19 Exenatide [Byetta] 10 mcg SQ BID 09/01/19 09/03/19 glipiZIDE [Glucotrol] 20 mg PO AC-BID 09/01/19 09/03/19 metFORMIN HCL [Glucophage] 1,000 mg PO BID 09/01/19 09/03/19 Previous Rx's Medication Instructions Recorded HYDROcodone/APAP 7.5-325MG [[place] 1 each PO Q6HR PRN #28 tab 09/03/19 7.5] Allergies Allergy/AdvReac Type Severity Reaction Status Date / Time latex Allergy Itching Verified 11/15/23 19:00 Review of Systems ROS Statement: Those systems with pertinent positive or pertinent negative responses have been documented in the HPI. ROS Other: All systems not noted in ROS Statement are negative. Past Medical History Past Medical History: Diabetes Mellitus Additional Past Medical History / Comment(s): Traumatic brain injury, post traumatic stress disorder History of Any Multi-Drug Resistant Organisms: None Reported Past Surgical History: Tonsillectomy Past Psychological History: PTSD Past Drug Use History: None Reported General Exam Limitations: no limitations General appearance: alert, in no apparent distress Eye exam: Present: normal appearance, PERRL, EOMI. Absent: scleral icterus, conjunctival injection, periorbital swelling ENT exam: Present: normal exam, mucous membranes moist Respiratory exam: Present: normal lung sounds bilaterally. Absent: respiratory distress, wheezes, rales, rhonchi, stridor Cardiovascular Exam: Present: regular rate, normal rhythm, tachycardia, normal heart sounds. Absent: systolic murmur, diastolic murmur, rubs, gallop, clicks GI/Abdominal exam: Present: soft, normal bowel sounds. Absent: distended, tenderness, guarding, rebound, rigid Extremities exam: Present: normal inspection, full ROM, normal capillary refill. Absent: tenderness, pedal edema, joint swelling, calf tenderness Neurological exam: Present: alert, oriented X3, CN II-XII intact Skin exam: Present: warm, dry, intact, normal color. Absent: rash Course Vital Signs 11/15/23 11/15/23 17:09 19:02 Temperature 98.1 F Pulse Rate 130 H 110 H Respiratory 20 18 Rate Blood Pressure 170/114 144/85 O2 Sat by Pulse 97 96 Oximetry Medical Decision Making - Medical Decision Making Was pt. sent in by a medical professional or institution ([facility], [employer], urgent care, hospital, or alf...) When possible be specific @ -No Did you speak to anyone other than the patient for history (EMS, parent, family, police, friend...)? What history was obtained from this source @ -No Did you review nursing and triage notes (agree or disagree)? Why? @ -I reviewed and agree with nursing and triage notes Were old charts reviewed (outside hosp., previous admission, EMS record, old EKG, old radiological studies, urgent care reports/EKG's, alf records)? Report findings @ -No old charts were reviewed Differential Diagnosis (chest pain, altered mental status, abdominal pain women, abdominal pain men, vaginal bleeding, weakness, fever, dyspnea, syncope, headache, dizziness, GI bleed, back pain, seizure, CVA, palpatations, mental health, musculoskeletal)? @ -Differential Weakness: Hypoglycemia, shock, sepsis, hyponatremia, anemia, infection, MO, ETOH, adverse medicine reaction, overdose, stroke, this is not meant to be an all-inclusive list. EKG interpreted by me (3pts min.). @ -completed at 1746 sinus tachycardia with a ventricular rate of 116, KS interval 168, QTc 419. No acute signs of ischemia. X-rays interpreted by me (1pt min.). @ -None done CT interpreted by me (1pt min.). @ -None done U/S interpreted by me (1pt. min.). @ -None done What testing was considered but not performed or refused? (CT, X-rays, U/S, labs)? Why? @ -None What meds were considered but not given or refused? Why? @ -None Did you discuss the management of the patient with other professionals (professionals i.e. , PA, [employer], lab, RT, psych nurse, director of social work, shellac polisher, teacher, chief security officer, spring encaser)? Give summary @ -No Was smoking cessation discussed for >3mins.? @ -I discussed smoking cessation for greater than 3 minutes. The risk of smoking were discussed with the patient including but not limited to risks of cancer, stroke, coronary artery disease and COPD. Also discussed with patient were multiple methods of quitting smoking. Lastly we discussed the financial cost of smoking. Was critical care preformed (if so, how long)? @ -No Were there social determinants of health that impacted care today? How? (Homelessness, low income, unemployed, alcoholism, drug addiction, transportation, low edu. Level, literacy, decrease access to med. care, longterm, rehab)? @ -No Was there de-escalation of care discussed even if they declined (Discuss DNR or withdrawal of care, Hospice)? DNR status @ -No What co-morbidities impacted this encounter? (DM, HTN, Smoking, COPD, CAD, C ancer, CVA, ARF, Chemo, Hep., AIDS, mental health diagnosis, sleep apnea, morbid obesity)? @ -None Was patient admitted / discharged? Hospital course, mention meds given and route, prescriptions, significant lab abnormalities, going to OR and other pertinent info. @ -discharged. 43-year-old male with abnormal labs. On my evaluation the patient he is resting comfortably no signs acute distress. Patient is tachycardic on arrival mildly hypertensive. CBC reveals a hemoglobin of 19, gilmar tocrit of 57.1, red blood cells of 6.37, elevated glucose of 457 and patient provided with 10 unit insulin bolus, troponin nonelevated less than 0.012. I discussed with the patient states that he is feeling well and discussed laboratory findings with him at bedside. He states that he feels comfortable to follow-up outpatient with his primary care provider as he already has an appointment scheduled next week he states that his PCP is scheduling a appointment with his kitchen aide as well. All questions answered at bedside and strict return parameters discussed with the patient he is verbalized understanding. Case discussed with Dr. Herrera Undiagnosed new problem with uncertain prognosis? @ -No Drug Therapy requiring intensive monitoring for toxicity (Heparin, Nitro, Insulin, Cardizem)? @ -No Were any procedures done? @ -No Diagnosis/symptom? @ -Elevated hematocrit, elevated hemoglobin Acute, or Chronic, or Acute on Chronic? @ -Acute Uncomplicated (without systemic symptoms) or Complicated (systemic symptoms)? @ -Uncomplicated Side effects of treatment? @ -No Exacerbation, Progression, or Severe Exacerbation? @ -No Poses a threat to life or bodily function? How? (Chest pain, USA, MO, pneumonia, PE, COPD, DKA, ARF, appy, cholecystitis, CVA, Diverticulitis, Homicidal, Suicidal, threat to staff... and all critical care pts) @ -No - Lab Data Result diagrams: 11/15/23 17:48 11/15/23 17:48 Lab Results 11/15/23 11/15/23 11/15/23 Range/Units 17:48 17:48 17:48 WBC 10.3 (3.8-10.6) k/uL RBC 6.37 H (4.30-5.90) m/uL Hgb 19.0 H (13.0-17.5) gm/dL Hct 57.1 H* (39.0-53.0) % MCV 89.6 (80.0-100.0) fL MCH 29.8 (25.0-35.0) pg MCHC 33.3 (31.0-37.0) g/dL RDW 13.4 (11.5-15.5) % Plt Count 282 (150-450) k/uL MPV 7.6 Neutrophils % 60 % Lymphocytes % 26 % Monocytes % 7 % Eosinophils % 3 % Basophils % 1 % Neutrophils # 6.2 (1.3-7.7) k/uL Lymphocytes # 2.6 (1.0-4.8) k/uL Monocytes # 0.7 (0-1.0) k/uL Eosinophils # 0.3 (0-0.7) k/uL Basophils # 0.1 (0-0.2) k/uL Sodium 136 L (137-145) mmol/L Potassium 4.3 (3.5-5.1) mmol/L Chloride 104 (98-107) mmol/L Carbon Dioxide 21 L (22-30) mmol/L Anion Gap 11 mmol/L BUN 12 (9-20) mg/dL Creatinine 0.71 (0.66-1.25) mg/dL Est GFR (CKD-EPI)AfAm >90 (>60 ml/min/1.73 sqM) Est GFR (CKD-EPI)NonAf >90 (>60 ml/min/1.73 sqM) Glucose 457 H (74-99) mg/dL Calcium 9.4 (8.4-10.2) mg/dL Magnesium 2.0 (1.6-2.3) mg/dL Total Bilirubin 0.5 (0.2-1.3) mg/dL AST 35 (17-59) U/L ALT 37 (4-49) U/L Alkaline Phosphatase 167 H (38-126) U/L Troponin I <0.012 (0.000-0.034) ng/mL Total Protein 7.0 (6.3-8.2) g/dL Albumin 4.2 (3.5-5.0) g/dL Disposition Clinical Impression: Elevated hematocrit, Elevated hemoglobin Disposition: HOME SELF-CARE Condition: Good Instructions (If sedation given, give patient instructions): How to Stop Smoking (ED) Additional Instructions: Return to the emergency department for any new or worsening symptoms. Recommend that you follow-up outpatient with your primary care provider and kitchen aide for further evaluation of elevated hematocrit and hemoglobin Is patient prescribed a controlled substance at d/c from ED?: No Referrals: [facility],Clinic [Primary Care Provider] - 1-2 days Time of Disposition: 19:13
[2023-11-15 18:15] LABS: Carbon Dioxide 21 mmol/L (22-30); Chloride 104 mmol/L (98-107); Glucose 457 mg/dL (74-99); Potassium 4.3 mmol/L (3.5-5.1); Sodium 136 mmol/L (137-145)
[2023-11-15 18:16] LABS: ALT 37 U/L (4-49); AST 35 U/L (17-59); African American GFR (CKD) >90 (>60 ml/min/1.73 sqM); Albumin 4.2 g/dL (3.5-5.0); Alkaline Phosphatase 167 U/L (38-126); Anion Gap 11 mmol/L; Blood Urea Nitrogen 12 mg/dL (9-20); Calcium 9.4 mg/dL (8.4-10.2); Non-African American GFR(CKD) >90 (>60 ml/min/1.73 sqM); Total Bilirubin 0.5 mg/dL (0.2-1.3)
[2023-11-15 18:21] LABS: Basophils # (A) 0.1 k/uL (0-0.2); Basophils % (A) 1 %; Eosinophils # (A) 0.3 k/uL (0-0.7); Eosinophils % (A) 3 %; Lymphocytes # (A) 2.6 k/uL (1.0-4.8); Lymphocytes % (A) 26 %; MCH 29.8 pg (25.0-35.0); MCHC 33.3 g/dL (31.0-37.0); MCV 89.6 fL (80.0-100.0); Mean Platelet Volume 7.6; Monocytes # (A) 0.7 k/uL (0-1.0); Monocytes % (A) 7 %; Neutrophils # (A) 6.2 k/uL (1.3-7.7); Neutrophils % (A) 60 %; Platelet Count 282 k/uL (150-450); RBC 6.37 m/uL (4.30-5.90); RDW 13.4 % (11.5-15.5); WBC 10.3 k/uL (3.8-10.6)
[2023-11-15] MEDS: SODIUM CHLORIDE 0.9% 1,000 ML IV STA (18:26)
[2023-11-15] MEDS: INSULIN REGULAR 100 UNIT/ML VIAL (IV) IV ONE (18:28)
[2023-11-15 18:31] LABS: HCT 57.1 % (39.0-53.0)
[2023-11-15 19:04] VITALS: BP 144/85; PULSE 110; RESP 18
[2023-11-16 02:54] LABS: % Iron Saturation 14.54 (15.00-50.00); Iron 58 UG/DL (65-175); Total Iron Binding Capacity 399 UG/DL (228-460)
== END 2023-11-15 19:20 | disposition home or self-care (01) ==
LOC: EC 17:04
DX: R79.9 Abnormal finding of blood chemistry, unspecified
CPT/HCPCS: 36415; 80053; 83540; 83550; 83735; 84484; 85025; 93005; 96360; 99284; 99406